=== PATIENT | male | born 1975 | race Caucasian/White ===

== ENCOUNTER 2023-10-01 08:00 | Emergency (ER) | payer BC, SELFPAY ==
[2023-10-01] VITALS (43 sets, daily range): BP systolic 111–152; BP diastolic 73–100; PULSE 63–89; RESP 9–20; TEMP 36.4; O2SAT 99
--- NOTE | 2023-10-01 08:00 | RT.EKG_ITS ---
APPROVED REPORT Exam: Resting ECG Reason for Exam: chest pain Patient Location: E HR:79 bpm ECG Measurements Heart Rate 79 AXIS [place] 173 P 69 QRSd 100 QRS 85 QT 381 T 57 QTc 437 Conclusion Sinus rhythm 79 normal axis no stemi
--- NOTE | 2023-10-01 08:15 | W.ED.GENAD ---
Discharge Plan Disposition Patient Disposition: Home Condition: Stable Discharge Details Clinical Impression: Viral syndrome Primary Care Provider: None,None ED Provider: Clyde Gonzales Home Meds and New Rx's Prescriptions: Continued aspirin [Aspirin Low-Strength] 81 MG tablet,chewable 81 mg PO DAILY albuterol sulfate [ProAir HFA] 200 PUFF HFA aerosol inhaler 200 puff Inhalation Q2H PRN PRN (Reason: Shortness Of Breath) Qty: 1 1RF Rx Instructions: 2 puffs every 2 hours as needed Discharge Instructions Instructions: Cough, runny nose, and the common cold, COVID-19 ED Additional Instructions: You were seen in the emergency department for your viral syndrome. This is likely COVID-19 although your test did not come back positive, there is significant outbreak at the facility across the street where you have close contact. Likely are too early in the course of your illness to test positive and I suspect that if you testing again in 3 to 4 days it would likely be positive. Otherwise there is no pneumonia on your chest x-ray and your labs are reassuring, he had a very mild elevation of pancreatic enzymes possibly due to EtOH or dehydration, you had mildly low magnesium, this should replete with normal p.o. intake. Please use therapeutic dosing of Tylenol (acetamenophen) & Advil (ibuprofen) in an alternating fashion as follows: Take 1000mg of Tylenol every 6 hours without missing doses- that is 4 times per day. Assisted in between the Tylenol dosings, take 400-600mg of Advil also on a 6 hour schedule, that is also 4 times per day. The daily maximum dosing of Tylenol is 4000mg, and the daily maximum dosing of Advil is 2400mg. This is safe to do for weeks. Please note that some common cold medications & prescription pain medications may contain acetamenophen and you need to read OTC drug labels and factor that in to maximum daily dosings. Take your inhaler at home as needed Please return to the emergency department for any profound increase in shortness of breath, chest pain, high fevers despite adequate Tylenol and ibuprofen dosing, intractable nausea or vomiting Discharge Data Discharge Date/Time-TO BE ENTERED AT DEPARTURE: 10/01/23 12:40 HPI General Date/Time Provider Initiated Documentation: 10/01/23 08:14. HPI Narrative: 47 year-old male presents to ED today by POV/ambulating with a chief complaint of generalized illness- has close contact with worker across the street at facility with current cases of Covid-19 with onset yesterday, more focal today with cough feveloping. Quality described as shortness of breath, cough, mild L chest discomfort, vomiting x2, chills, no radiation to dizziness, syncope, profound shortness of breath, intractable nausea/vomiting, black/bloody diarrhea, hemoptysis. Severity is described as moderate. Palliating factors include nothing specific. Provoking factors include nothing specific. Events leading up to the incident/Associated Symptoms: Patient is unvaccinated for Covid-19, states he's never had it before- recently moved to the area from [place]. Patient not anticoagulated. Related Data Home Medications ?Medication ?Instructions ?Recorded ?Confirmed aspirin 81 mg chewable tablet 81 mg PO DAILY 05/31/16 10/01/23 (Aspirin Low-Strength) albuterol sulfate 90 mcg/actuation 200 puff inhalation Q2H PRN PRN 06/01/16 10/01/23 aerosol inhaler (ProAir HFA) Shortness Of Breath #1 inh Previous Rx's ?Medication ?Instructions ?Recorded albuterol sulfate 90 mcg/actuation 200 puff inhalation Q2H PRN PRN 06/01/16 aerosol inhaler (ProAir HFA) Shortness Of Breath #1 inh Allergies Allergy/AdvReac Type Severity Reaction Status Date / Time enviornmental Allergy Mild sneezing-itchy Uncoded 10/01/23 08:07 eyes General Stated Complaint: RespSymp AMANDA: 3 Review of Systems All systems reviewed & are unremarkable except as noted in HPI and below Exam Narrative Exam Narrative: GENERAL APPEARANCE: Well-nourished, non-toxic, awake and alert, atraumatic, no acute distress. SKIN: Warm, pink, dry, intact, without rashes/lesions/ulcerations. HEAD: Normocephalic, atraumatic, normal hair distribution for gender/age. EYES: Normal conjunctiva, no exudates on lids/lashes. ENT: Nares patent, no circumoral cyanosis, no facial swelling NECK: Supple, trachea midline, painless cervical ROM. LUNGS/CHEST: Lungs CTA bilaterally- no rhonchi/rales/wheezes diffusely, non-labored respirations, normal A/P diameter, symmetrical expansion, no chest wall deformity HEART (CV/PV): Regular rate and rhythm without murmur, no peripheral edema, no JVD. ABDOMEN: Soft, non-distended, no guarding, no tenderness. MSK: Normal ROM, no swelling/deformity to bilateral UEs or LEs, moving all extremities without weakness, no cyanosis, spine midline without tenderness, normal curvature. NEURO: Mental Status AAOx4 - alert to person, place, time, events No facial droop, no forehead involvement. Motor: No focal weakness - strength 5/5 in bilateral UEs and LEs, proximal and distal, symmetric. Sensory: sensation intact to light touch globally. Gait normal: patient ambulated without ataxia into ED room. PSYCH: euthymic, cooperative, pleasant, appropriate speech Course Vital Signs Vital signs: Vital Signs Temperature 36.4 C L 10/01/23 08:03 Pulse 89 10/01/23 08:03 Respiratory Rate 20 10/01/23 08:03 Blood Pressure 152/100 H 10/01/23 08:03 Pulse Oximetry 99 10/01/23 08:03 Temperature 36.4 C L 10/01/23 08:03 Temperature Source Oral 10/01/23 08:03 Pulse 89 10/01/23 08:03 Respiratory Rate 20 10/01/23 08:03 Blood Pressure 152/100 H 10/01/23 08:03 Blood Pressure Position Sitting 10/01/23 08:03 Pulse Oximetry 99 10/01/23 08:03 Oxygen Delivery Method Room Air 10/01/23 08:03 Oxygen Flow Rate 0 10/01/23 08:03 Pain Level 3 10/01/23 08:03 Medical Decision Making This dictation utilizes [id number] dictation software and may contain unedited grammatical errors. 47 year-old male presents to ED today by POV/ambulating with a chief complaint of generalized illness- has close contact with worker across the street at facility with current cases of Covid-19 with onset yesterday, more focal today with cough feveloping. Quality described as shortness of breath, cough, mild L chest discomfort, vomiting x2, chills, no radiation to dizziness, syncope, profound shortness of breath, intractable nausea/vomiting, black/bloody diarrhea, hemoptysis. Severity is described as moderate. Palliating factors include nothing specific. Provoking factors include nothing specific. Events leading up to the incident/Associated Symptoms: Patient is unvaccinated for Covid-19, states he's never had it before- recently moved to the area from [place]. Patients' medical history: COPD, has inhaler at home. Family and social history: Noncontributory. Pertinent exam findings / vital signs include lungs CTA, nontoxic, benign abdomen. Differential / pathologies of concern include viral syndrome, pneumonia, unlikely bacteremia or sepsis. Diagnostic studies of: -CBC, CMP, lactate, troponin I, CRP, lipase, procalcitonin, Fluvid swab, magnesium, chest x-ray, EKG. -CBC shows no leukocytosis, no anemia -Lactate and procalcitonin are negative-do not suspect sepsis -lipase mildly elev. nonspecific -CRP negative -CMP shows mild hypokalemia -Magnesium 1.5, will replete with 1 g IV and recommend supplements outpatient -Fluvid swab negative -Chest x-ray without overt pneumonia -EKG: Sinus rhythm 79 bpm with no STEMI, normal axis, normal intervals Interventions of: -Given Tylenol, Toradol, Zofran and a DuoNeb as well as 1 g of magnesium and 1 L of lactated Ringer's with significant improvement in his symptoms. ED Course/Assessment/Plan: Counseled the patient that he likely has COVID-19 but may be too early to seroconvert positivity on testing. He has had close contacts. He was experiencing no acute respiratory distress, felt better after adequate dosing of Tylenol and Toradol and a DuoNeb, has inhaler at home and recommend he continue this. Strict return criteria for profound worsening of any of his symptoms including respiratory distress, inability to tolerate p.o. intake, recommend magnesium supplements outpatient. Findings not consistent with respiratory distress, sepsis or bacteremia, pneumonia. Disposition of viral syndrome. Patient verbalized understanding of the plan and return to ED criteria and engaged in shared decision making. Medical Records Medical records reviewed: Yes I reviewed the patient's medical records. Imaging Data Radiologic Study: Attestation: I personally reviewed and interpreted this imaging study as follows: Imaging: X-Ray Radiologist's impression: EXAM: XR CHEST 2V PA LATERAL CLINICAL HISTORY: PUI, short of breath, cough TECHNIQUE: 2D digital imaging was performed of the chest. Two images were obtained. PA and lateral views were obtained. COMPARISON: CR CHEST 2 VIEWS PA,LAT from 10/02/2015 FINDINGS: MEDIASTINUM: Normal. HEART: Normal. PULMONARY VASCULATURE: Normal. LUNGS: Clear. PLEURAL SPACE: No pleural effusion or pneumothorax. BONE:Within normal limits for the patient's age. OTHER FINDINGS:Normal. IMPRESSION: No acute pulmonary findings. Lab Data Lab results reviewed: Yes I reviewed the patient's lab results. Labs: Laboratory Tests Range/Units 10/01/23 10/01/23 08:13 08:15 WBC (4.4-10.8) 10^3/uL 4.94 RBC (4.36-5.78) 10^6/uL 4.30 L Hgb (13.5-17.5) g/dL 14.7 Hct (40.0-50.0) % 42.7 MCV (80-95) fL 99 H MCH (27.0-33.0) pg 34.2 H MCHC (32.0-36.0) % 34.4 RDW (11.8-14.1) % 12.5 Plt Count (130-400) 10^3/uL 254 MPV (8.0-11.0) fL 9.7 Immature Gran % % 0.0 Neutrophils % % 48.0 Lymphocytes % % 34.8 Monocytes % % 14.4 Eosinophils % % 1.6 Basophils % % 1.2 Nucleated RBC % (0.0-0.3) % 0.0 Absolute Neutrophils (1.2-6.7) 10^3/uL 2.37 Absolute Lymphocytes (1.2-3.4) 10^3/uL 1.72 Absolute Monocytes (0.1-0.8) 10^3/uL 0.71 Absolute Eosinophils (0.0-0.7) 10^3/uL 0.08 Absolute Basophils (0.0-0.2) 10^3/uL 0.06 VBG Lactate (0.6-1.4) mmol/L 1.4 Sodium (136-145) mmol/L 142 Potassium (3.5-5.1) mmol/L 3.4 L Chloride (98-107) mmol/L 104 Carbon Dioxide (21.0-32.0) mmol/L 27.1 Anion Gap (3-11) mmol/L 10.9 BUN (7-18) mg/dL 6 L Creatinine (0.70-1.30) mg/dL 0.7 Est GFR (CKD-EPI 2020) (mL/min/1.73m2) 112.95 Glucose (74-106) mg/dL 130 H Calcium (8.5-10.1) mg/dL 8.4 L Magnesium (1.8-2.4) mg/dL 1.5 L Total Bilirubin (0.2-1.0) mg/dL 0.48 AST (15-37) U/L 28 ALT (16-63) U/L 25 Alkaline Phosphatase (46-116) U/L 94 Troponin I (< or =60) ng/L < 50 C-Reactive Protein (<or=0.5) mg/dL < 0.50 Total Protein (6.4-8.2) g/dL 6.9 Albumin (3.4-5.0) g/dL 3.7 Lipase (16-77) U/L 89 H Procalcitonin ng/mL < 0.1 COVID-19 Source Nasopharynx SARS-CoV-2 (PCR) (Negative) Negative Influenza Type A (PCR) (Negative) Negative Influenza Type B (PCR) (Negative) Negative RSV (PCR) (Negative) Negative Quality:SDOH Health Related Social Needs: No Data to Display PFSH All Active Problems (Updated 10/01/23 @ 12:18 by DESI Garcia) Viral syndrome (Acute) Social History Smoking/Tobacco Use Status: Current every day Smoking risk assessment performed?: Yes Drug use: Never Do you feel safe in your relationship?: Yes
[2023-10-01 08:31] LABS: Lactate 1.4 mmol/L (0.6-1.4)
[2023-10-01 08:36] LABS: Absolute Basophil Count 0.06 10^3/uL (0.0-0.2); Absolute Eosinophil Count 0.08 10^3/uL (0.0-0.7); Absolute Lymphocyte Count 1.72 10^3/uL (1.2-3.4); Absolute Monocyte Count 0.71 10^3/uL (0.1-0.8); Absolute Neutrophil Count 2.37 10^3/uL (1.2-6.7); Basophils % 1.2 %; Eosinophils % 1.6 %; HCT 42.7 % (40.0-50.0); HGB 14.7 g/dL (13.5-17.5); Lymphocytes % 34.8 %; MCH 34.2 pg (27.0-33.0); MCHC 34.4 % (32.0-36.0); MCV 99 fL (80-95); MPV 9.7 fL (8.0-11.0); Monocytes % 14.4 %; Platelet Count 254 10^3/uL (130-400); RDW 12.5 % (11.8-14.1); RDW-SD 45.6 fL; WBC 4.94 10^3/uL (4.4-10.8)
[2023-10-01 09:03] LABS: COVID-19 PCR Negative (Negative); Influenza A PCR Negative (Negative); Influenza B PCR Negative (Negative); RSV PCR Negative (Negative)
[2023-10-01 09:06] LABS: ALT 25 U/L (16-63); AST 28 U/L (15-37); Albumin 3.7 g/dL (3.4-5.0); Alkaline Phosphatase 94 U/L (46-116); Anion Gap 10.9 mmol/L (3-11); BUN 6 mg/dL (7-18); Bilirubin, Total 0.48 mg/dL (0.2-1.0); CO2 27.1 mmol/L (21.0-32.0); CREATININE 0.7 mg/dL (0.70-1.30); Calcium 8.4 mg/dL (8.5-10.1); Chloride 104 mmol/L (98-107); Estimated GFR 112.95 (mL/min/1.73m2); Glucose 130 mg/dL (74-106); Lipase 89 U/L (16-77); Magnesium 1.5 mg/dL (1.8-2.4); Potassium 3.4 mmol/L (3.5-5.1); Sodium 142 mmol/L (136-145); Total Protein 6.9 g/dL (6.4-8.2); Troponin I < 50 ng/L (< or =60)
[2023-10-01 09:11] LABS: C-Reactive Protein < 0.50 mg/dL (<or=0.5)
[2023-10-01 09:26] LABS: Procalcitonin < 0.1 ng/mL
[2023-10-01 10:00] LABS: Source Nasopharynx
[2023-10-01] MEDS: Lactated Ringers 1,000 ML 1000 ML IV (10:31)
[2023-10-01] MEDS: Ondansetron 4 MG/2 ML VIAL IVP (10:32)
[2023-10-01] MEDS: Ketorolac 15 MG/ML VIAL IVP (10:32)
[2023-10-01] MEDS: Albuterol/Ipratropium 3 ML UPD VIAL UPD (10:32)
[2023-10-01] MEDS: MAGNESIUM SULFATE 1 GM/100 ML BAG IVINF (10:33)
[2023-10-01] MEDS: ACETAMINOPHEN 1,000 MG/100 ML BTL 400 MG IVPB (10:33)
== END 2023-10-01 12:40 | disposition home or self-care (01) ==
PROVIDERS: Emergency Provider Physician Assistant
DX: R07.9 Chest pain, unspecified (principal); R11.10 Vomiting, unspecified; R05.9 Cough, unspecified; B34.9 Viral infection, unspecified; Z79.82 Long term (current) use of aspirin; E83.42 Hypomagnesemia; E87.6 Hypokalemia; F17.210 Nicotine dependence, cigarettes, uncomplicated
CPT/HCPCS: 36415; 80053; 83690; 84145; 87637; 93005; 94640; 96374; 96375; 99285; 71046; 83605; 83735; 84484; 85025; 86140; 93010; 99284; J0131; J1885; J2405; J3475; J7620

== ENCOUNTER 2024-08-31 07:23 | Inpatient (IN) | payer BC, SELFPAY ==
[2024-08-31] VITALS (43 sets, daily range): BP systolic 94–124; BP diastolic 57–86; PULSE 71–93; RESP 10–24; TEMP 36.7–37; O2SAT 96–100
--- NOTE | 2024-08-31 08:15 | RT.EKG_ITS ---
APPROVED REPORT Exam: Resting ECG Reason for Exam: confusion Patient Location: E HR:72 bpm ECG Measurements Heart Rate 72 AXIS [place] 187 P 47 QRSd 99 QRS 73 QT 403 T 45 QTc 441 Conclusion Sinus rhythm...normal P axis, V-rate 60- 99 ST elev, probable normal early repol pattern...ST elevation, age<55 No Occlusion ME
--- NOTE | 2024-08-31 08:20 | DI.CT_ITS ---
Exam(s) CT HEAD WO EXAM: CT HEAD WO CLINICAL HISTORY: confusion. TECHNIQUE: Imaging Protocol: Axial computed tomography images with coronal and sagittal reformatted images were created and reviewed COMPARISON: No exams were available for comparison FINDINGS: Ventricles and Extra axial spaces: Normal in size and morphology for the patient's age. Hemorrhage: None. Cerebral parenchyma: There is no evidence of an acute territorial infarct or mass effect. Midline shift: None. Brainstem/Cerebellum: Normal. Calvarium: Normal. Visualized Paranasal sinuses/Mastoids: Clear. Soft Tissues: Unremarkable. IMPRESSION: No acute intracranial process. RADIATION DOSE DELIVERED: 861.93mGy.cm Total DLP DATA REPOSITORY: All CT scans at this facility are submitted to the National Radiology Data Registry (NRDR) Dose Index Registry (DIR) with the [employer] (ACR). RADIATION OPTIMIZATION: All CT scans at this facility use at least one of these dose optimization techniques: automated exposure control; mA and/or kV adjustment per patient size (includes targeted exams where dose is matched to clinical indication); or iterative reconstruction.
[2024-08-31 09:27] LABS: Abs Immature Grans 0.03 10^3/uL (0.0-0.06); HCT 33.5 % (40.0-50.0); HGB 11.5 g/dL (13.5-17.5); Immature Grans % 0.5 %; MCH 35.4 pg (27.0-33.0); MCHC 34.3 % (32.0-36.0); MCV 103 fL (80-95); MPV 10.3 fL (8.0-11.0); Platelet Count 171 10^3/uL (130-400); RBC 3.25 10^6/uL (4.36-5.78); RDW 12.2 % (11.8-14.1); RDW-SD 46.3 fL; WBC 6.21 10^3/uL (4.4-10.8)
[2024-08-31 09:49] LABS: ALT 121 U/L (16-63); AST 53 U/L (15-37); Albumin 3.7 g/dL (3.4-5.0); Alkaline Phosphatase 88 U/L (46-116); Anion Gap 10.1 mmol/L (3-11); BUN 19 mg/dL (7-18); Bilirubin, Total 0.8 mg/dL (0.2-1.0); CO2 26.9 mmol/L (21.0-32.0); Calcium 8.7 mg/dL (8.5-10.1); Chloride 100 mmol/L (98-107); Estimated GFR 117.60 (mL/min/1.73m2); Glucose 103 mg/dL (74-106); Magnesium 1.9 mg/dL (1.8-2.4); Potassium 3.2 mmol/L (3.5-5.1); Sodium 137 mmol/L (136-145); Total Protein 6.8 g/dL (6.4-8.2)
[2024-08-31] MEDS: PHENobarbital 150 MG in Normal Saline 50 ML 100 MG IVPB (10:18)
[2024-08-31] MEDS: MAGNESIUM SULFATE 8.12 MEQ, MULTIVITAMIN 10 ML, THIAMINE 100 MG, FOLIC ACID 1 MG in Nor... 168.867 MG IV (10:18)
[2024-08-31 10:21] LABS: Ammonia < 10 umol/L (11-32)
[2024-08-31 10:28] LABS: Glucose Negative (Negative)
[2024-08-31 10:35] LABS: C & S Indicated? No; RBC Negative HPF (0-2); WBC Negative HPF (0-5)
[2024-08-31 10:42] LABS: Cannabinoids THC Positive (Negative); METHADONE URINE SCREEN Negative (Negative)
[2024-08-31] MEDS: Potassium Chloride 20 MEQ TABCR 40 MEQ PO (10:46)
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
[2024-08-31] MEDS: THIAMINE 500 MG in Normal Saline 100 ML 200 MG IVPB ×2 (11:33→20:15)
[2024-08-31 12:36] LABS: Iron 76 ug/dL (65-175); Total Iron Binding Capacity 309 ug/dL (250-450); Transferrin Sat 25 % (20-55)
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
[2024-08-31 13:03] LABS: Folate 17.1 ng/mL (8.6-20.0); Vitamin B12 624 pg/mL (193-986)
[2024-08-31] MEDS: PHENobarbital 110 MG in Normal Saline 50 ML 100 MG IVPB ×2 (13:03→16:19)
[2024-08-31] MEDS: Normal Saline Flush 10 ML SYR IVP ×2 (20:15)
[2024-09-01 04:17] VITALS: BP 94/66; PULSE 75; RESP 18; TEMP 36.8; O2SAT 98
[2024-09-01] MEDS: THIAMINE 500 MG in Normal Saline 100 ML 200 MG IVPB ×2 (04:26→11:43)
[2024-09-01] MEDS: Normal Saline Flush 10 ML SYR IVP ×3 (04:26→11:47)
[2024-09-01 07:17] LABS: Abs Immature Grans 0.03 10^3/uL (0.0-0.06); HCT 32.0 % (40.0-50.0); HGB 10.9 g/dL (13.5-17.5); Immature Grans % 0.5 %; MCH 34.9 pg (27.0-33.0); MCHC 34.1 % (32.0-36.0); MCV 103 fL (80-95); MPV 10.3 fL (8.0-11.0); Platelet Count 209 10^3/uL (130-400); RBC 3.12 10^6/uL (4.36-5.78); RDW 12.5 % (11.8-14.1); RDW-SD 46.5 fL; WBC 6.20 10^3/uL (4.4-10.8)
[2024-09-01 07:42] LABS: ALT 89 U/L (16-63); AST 34 U/L (15-37); Albumin 3.1 g/dL (3.4-5.0); Alkaline Phosphatase 76 U/L (46-116); Anion Gap 7.9 mmol/L (3-11); BUN 7 mg/dL (7-18); Bilirubin, Total 0.4 mg/dL (0.2-1.0); CO2 25.1 mmol/L (21.0-32.0); Calcium 7.8 mg/dL (8.5-10.1); Chloride 105 mmol/L (98-107); Estimated GFR 124.26 (mL/min/1.73m2); Glucose 129 mg/dL (74-106); Potassium 3.3 mmol/L (3.5-5.1); Sodium 138 mmol/L (136-145); Total Protein 6.0 g/dL (6.4-8.2)
[2024-09-01 07:50] VITALS: BP 102/62; PULSE 71; RESP 12; TEMP 36.2; O2SAT 98
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
[2024-09-01] MEDS: Aspirin 81 MG CHEW PO (09:30)
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
--- NOTE | 2024-09-01 13:00 | CMDISCH_ITS ---
Date of service: 09/01/24 Time of Service: 13:00 LACE Index Scoring Tool Questions: Length of Stay (in days): 1 Was the patient admitted via the E.D.?: Yes E.D. Visits: 1 Answers: Total Score: 5 Risk of Readmission: Low Risk Care Management Discharge Plan Reason for Hospitalization: ETOH W/D Discharge Plan: Poncho will be discharged home today with no new services. CM did provide him with the recovery specialist pamphlet as he declined seeing them today. Delphine guillory will follow up with his community providers and discharge plan of care. He will transport via private vehicle. Patient/Family Education Needs: Review discharge instructions, activity, limitations, and plan of care. Discuss Ask Me Three. SDOH Health Related Social Needs: Health related social needs daily activities education Health related social needs details NA Health related social needs details: AKBAR
[2024-09-03 12:27] LABS: Thiamine (Vitamin B1), WB 61 nmol/L (70-180)
== END 2024-09-01 13:25 | disposition home or self-care (01) | DRG 897 ==
LOC: ER 08:06 → MS 12:46
PROVIDERS: Admitting Provider Hospitalist; Emergency Provider Physician Assistant; Visit Provider Hospitalist
DX: F10.131 Alcohol abuse with withdrawal delirium (principal); F10.151 Alcohol abuse with alcohol-induced psychotic disorder with hallucinations; F17.210 Nicotine dependence, cigarettes, uncomplicated; R79.89 Other specified abnormal findings of blood chemistry; Y90.0 Blood alcohol level of less than 20 mg/100 ml
CPT/HCPCS: 00123; 36415; 80053; 80307; 93005; 96365; 96366; 96367; 96368; 99285; 70450; 80320; 81003; 81015; 82140; 82607; 82746; 83540; 83550; 83735; 84425; 85025; 93010; 99222; 99238; J2560; J3411; J3475